=== PATIENT | female | born 1955 | race Caucasian/White ===

== ENCOUNTER 2017-03-29 15:18 | Emergency (ER) | payer SELFPAY ==
[~2017-03-29] VITALS: Ht 175.3 cm; Wt 103.4 kg
[2017-03-29] MEDS ORDERED: LIDOCAINE 1%, 20ML INFIL ONE (16:30)
[2017-03-29] MEDS ORDERED: LIDOCAINE 1%, 20ML ONE (16:33)
[2017-03-29 18:25] VITALS: BP 170/92
[2017-03-29] MEDS ORDERED: BACITRACIN ZINC OINT 500U/GM, 0.9 GM ONE (19:13)
== END 2017-03-29 19:24 | disposition home or self-care (01) ==
LOC: ED 19:17
DX: S52.592A Other fractures of lower end of left radius, initial encounter for closed fracture (principal); S01.81XA Laceration without foreign body of other part of head, initial encounter; W01.0XXA Fall on same level from slipping, tripping and stumbling without subsequent striking against object, initial encounter; Y93.89 Activity, other specified; Y92.89 Other specified places as the place of occurrence of the external cause; Y99.8 Other external cause status
CPT/HCPCS: 13132; 13133; 70100